=== PATIENT | female | born 1950 | race Caucasian/White ===

== ENCOUNTER 2017-06-13 12:52 | Inpatient (IN) | payer OTHER ==
[~2017-06-13] VITALS: Ht 160 cm; Wt 75.7 kg
--- NOTE | ~2017-06-13 | HC ---
[facility] [place] [address] CONSULTATION Name: BRISAMARTINEZ Room #: 455-P ADM IN M.R.#: [id number] Admission: 06/13/17 Attend Phys: Jeremy Cordova Discharge: Date of : 48 Report #: [id number] THIS REPORT FOR: //name// CC: Jamila Cordova DATE OF SERVICE: 06/13/2017 HISTORY OF PRESENT ILLNESS: The patient is a 66-year-old single white female who I was asked to see in the hospital today after she complained of chest pain. The patient apparently presented in 2002 with chest burning. She was found to have coronary artery disease and had a stent placed in the LAD at [facility]. She has apparently done well since that time. Her last stress test was a couple of years ago. She has been followed by Dr. Michael, my partner. She last saw Dr. Michael in September of this year when she was doing well. She states that recently, she has been in [facility]. While over there, when she exerted herself, she felt a burning in her chest that would go into her arm. It was relieved with rest. Since [place] to the [place] 5 [place] ago, she continues to have intermittent burning in her chest that is related to activity. It occurs almost every day. She went to see Dr. Fowler today. She was noted to have an abnormal EKG. She was stent from the office to the emergency room here at [facility] by ambulance. The chest pressure is improved at this time. She denied her chest pressure was related to food. She has had no cough or blood in her stool. She does get short of breath if she exerts herself, but had no palpitations or syncope. PAST MEDICAL HISTORY: Otherwise significant for hysterectomy and 2 back surgeries. She has a history of hypertension, hyperlipidemia, and discoid lupus. She has had a colon polyp removed in the past. MEDICATIONS: Consist of Lipitor, Climara, aspirin, Nexium, metoprolol, and spironolactone. ALLERGIES: She has intolerances to SULFA and CODEINE. FAMILY HISTORY: Significant for heart disease. SOCIAL HISTORY: She has been . She lives in [place]. She used to work for the [employer]. Nonsmoker. Rarely drinks alcohol. REVIEW OF SYSTEMS: She has had no history of stroke, asthma, peptic ulcer disease, liver disease, kidney disease, cancer, psychiatric illness, or chronic skin condition. PHYSICAL EXAMINATION: [facility] [address] [place] [address] CONSULTATION Name: MARTINEZ LEDEZMA Room #: 455-P [facility] IN ..#: [id number] Admission: 06/13/17 Attend Phys: Jeremy Cordova Discharge: Date of : 48 Report #: [id number] GENERAL: Revealed a middle-aged female who appeared in no acute distress. VITAL SIGNS: She had a blood pressure of 120/60, pulse of 60, and she was afebrile. HEENT: She is anicteric. Conjunctivae are pink. Mucous membranes are moist. NECK: Veins nondistended. No carotid bruits. Neck supple. CHEST: Clear to auscultation. CARDIAC: Regular rate and rhythm. ABDOMEN: Soft and nontender. EXTREMITIES: No edema. Dorsalis pedis pulse is 1+ bilaterally. SKIN: Cool and dry. NEUROLOGIC: Nonfocal. LABORATORY DATA: Her ECG shows a sinus rhythm, left axis, and right bundle-branch block. Workup in the emergency room today: She had a chest x-ray that showed normal heart size and clear lung rowe. Her lab work, sodium 130, creatinine 1.4, and glucose 94. Troponin 0.04. White blood cell count 8.0 and hemoglobin 13.5. IMPRESSION AND RECOMMENDATIONS: 1. Unstable angina. Recommend repeat cardiac catheterization. 2. Hypertension. The patient has been on a beta-laurita. 3. Hyperlipidemia. The patient is on a statin drug. 4. Discoid lupus. <ELECTRONICALLY SIGNED> By: Tom Christine MD, [facility] 06/14/17 0811 [id number] Tom Christine MD, FAC /nt
--- NOTE | ~2017-06-13 | 2DMMODE ---
[facility] [address] [place] [address] 2 D/M-MODE ECHOCARDIOGRAM Name: MARTINEZ LEDEZMA Room #: 455-P ADM IN .R.#: [id number] Admission: 06/13/17 Attend Phys: Jeremy Bob Discharge: Date of : 48 Date of Service: 06/14/17 1705 Report #: [id number] THIS REPORT FOR: //name// APPROVED REPORT Study performed: 06/14/2017 15:06:55 EXAM: Comprehensive 2D, Doppler, and color-flow Echocardiogram Patient Location: Echo lab Room #: [facility] Status: routine BSA: 1.79 HR: 78 bpm BP: 107/48 mmHg Rhythm: NSR/Irregular Other Information Study Quality: Good Indications CAD Hx: CAD, stents. 2D Dimensions RVDd: 33.53 mm LVEF(%): 68.87 (>50%) IVSd: 11.43 (7-11mm) LVOT Diam: 20.62 (18-24mm) LVDd: 42.62 mm PWd: 10.38 (7-11mm) Ascending Ao: 32.39 (22-36mm) LVDs: 26.31 (25-40mm) Aortic Root: 30.12 mm Mccain's LVEF: 68.87 % Volumes Left Atrial Volume (Systole) Single Plane 4CH: 46.59 mL Single Plane 2CH: 51.53 mL LA ESV Index: 29.00 mL/m2 Aortic Valve AoV Peak Sinna.: 1.86 m/s AO Peak Gr.: 13.81 mmHg LVOT Max P.87 mmHg LVOT Max V: 1.10 m/s MELANIE Vmax: 1.98 cm2 AI Vmax: 4.07 m/s AI Hart: 2.61 m/s2 AI PHT: 451.47 ms [facility] [place] [address] 2 D/M-MODE ECHOCARDIOGRAM Name: MARTINEZ LEDEZMA Room #: 455-P [facility] IN ..#: [id number] Admission: 06/13/17 Attend Phys: Jeremy Bob Discharge: Date of : 48 Date of Service: 06/14/17 1705 Report #: [id number] Mitral Valve E/A Ratio: 0.9 MV Decel. Time: 184.88 ms MV E Max Sinan.: 0.64 m/s MV A Sinan.: 0.73 m/s MV PHT: 53.61 ms IVRT: 83.04 ms Pulmonary Valve PV Peak Sinan.: 1.06 m/s PV Peak Gr.: 4.49 mmHg Pulmonary Vein P Vein S: 0.69 m/s P Vein A: 0.30 m/s P Vein D: 0.57 m/s P Vein A Dur.: 101.5 msec P Vein S/D Ratio: 1.21 Tricuspid Valve TR Peak Sinan.: 2.73 m/s RAP Estimate: 5.00 mmHg TR Peak Gr.: 29.88 mmHg PA Pressure: 35.00 mmHg Left Ventricle The left ventricle is normal size. There is normal LV segmental wall motion. There is normal left ventricular wall thickness. Left ventricular systolic function is normal. LVEF is 55-60%. Mild diastolic dysfunction is present (impaired relaxation pattern). Right Ventricle The right ventricle is normal size. The right ventricular systolic function is normal. Atria Left atrium is mildly dilated. The right atrium size is normal. Aortic Valve Aortic valve is mildly calcified. Mild aortic regurgitation. There is no aortic valvular stenosis. Mitral Valve The mitral valve is normal in structure. Trace mitral regurgitation. No evidence of mitral valve stenosis. Tricuspid Valve [facility] [address] [place] [address] 2 D/M-MODE ECHOCARDIOGRAM Name: BRISAMARTINEZ Room #: 455-P [facility] IN [facility]#: [id number] Admission: 06/13/17 Attend Phys: Jeremy Bob Discharge: Date of : 48 Date of Service: 06/14/17 1705 Report #: [id number] The tricuspid valve is normal in structure. Mild tricuspid regurgitation. Estimated PAP is 35mmHg. Pulmonic Valve The pulmonary valve is normal in structure. Trace pulmonic regurgitation. Great Vessels The aortic root is normal in size. The ascending aorta is normal in size. IVC is normal in size and collapses >50% with inspiration. Pericardium There is no pericardial effusion. <Conclusion> LVEF is 55-60%. Left atrium is mildly dilated. Mild aortic regurgitation. <ELECTRONICALLY SIGNED> By: Tom Christine MD, FACC 06/14/171704 04 04 Tom Christine MD, FACC /INF
--- NOTE | ~2017-06-13 | EKG ---
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
--- NOTE | ~2017-06-13 | CATHLAB ---
[facility] [address] [place] [address] INVASIVE PROCEDURE REPORT Name: BRISADENZELQING Lopez Room #: 455-P [facility] IN ..#: [id number] Admission: 06/13/17 Attend Phys: Jeremy Bob Discharge: Date of : 48 Date of Service: 06/14/172001 Report #: [id number] THIS REPORT FOR: //name// APPROVED REPORT Patient Details Patient Status: In-Patient Room #: The patient is a 66 year-old female Event Personnel Tom Christine Sports Recruiter, Kaylynn Srivastava Penny, Wes RN, Noa Myles CVT Monitor Procedures Performed Art Access - R radial artery Left Heart Cath w/or w/o Coronaries [id number] [facility] Hemostasis with Hemoband 06963 Initial Mod Sed Same Phys/QHP Gr5y [id number] Indication Chest pain Risk Factors Coronary Artery Disease Previous Procedures/Diagnoses Previous PCI Admission/Lab Medications/Medications given during procedure Aspirin, Heparin Unfract. Procedure Narrative The patient was brought electively to the Cardiac Catheterization Laboratory and was prepped and draped in a sterile manner. The Right Wrist^ was infiltrated with 1% Lidocaine subcutaneous anesthesia. A TRANSRADIAL SLENDER 6F GLIDESHEATH KIT #[id number] sheath was inserted into the Right Radial Artery^. Coronary angiography was performed using coronary diagnostic catheters. The right coronary system was accessed and visualized with a JR 4 catheter. The left coronary system was accessed and visualized with a JL 3.5 catheter. Left ventricular/Aortic Valve gradient assessed via catheter pullback. The patient tolerated the procedure well and there were no complications associated with the procedure. There was no hematoma. Intraoperative Conscious Sedation Sedation start time: 12:09 Case end Time: [facility] [address] [place] [address] INVASIVE PROCEDURE REPORT Name: MARTINEZ LEDEZMA John Room #: 455-P [facility] IN [facility]#: [id number] Admission: 06/13/17 Attend Phys: Jeremy Bob Discharge: Date of : 48 Date of Service: 06/14/172001 Report #: [id number] 12:36 Versed 2.0 mg Fluoro Time: 4.30 minutes Dose: DAP 3951.00 cGycm2 373 mGy Contrast Type and Amount: Visipaque 75 ml Coronary Angiography The patient's coronary anatomy is right dominant. [place] Artery Percent Stenosis Left Main: 0 % Prox LAD: 50 % Mid/Distal LAD: 0 % Circumflex: 0 % RCA: 0 % Ramus: %LAD had a stent just after the 1st diagonal artery. Just proximal to the stent, there was an eccentric 50% stenosis. The first diagonal branch had a mid 60% stenosis. Left Ventriculography Left Ventriculography was not performed. Hemodynamics The aortic pressure is 108/56 mmHg with a mean of 78 mmHg. The left ventricular pressure is 132/-6 mmHg with a mean of mmHg. The left ventricular end diastolic pressure is 12 mmHg. Conclusion 1. no significant restenosis of a lad stent 2. moderate disease of the lad and diagonal Recommendations Aggressive Medical Therapy <ELECTRONICALLY SIGNED> By: Tom Christine MD, FACC 06/14/172001 01 01 Tom Christine MD, FACC /INF
[2017-06-13 12:52] VITALS: BP 126/50
[~2017-06-13 12:52] MED LIST: ASCRIPTIN 325325 MG PO; CLIMARA PRO PA1 EACH TOP; FLONASE 0.05%50 MCG SPRAY; HYDROXYCHLOROQ200 M1 PO; LISINOPRIL2.5 MG PO; MAG-OX 400 TAB400 M1 PO; NAPROSYN500 MG PO; NEXIUM40 MG PO; SIMCOR 500-201 EACH PO; TOPROL XL25 MG PO; TRIAMTERENE-HC1 EAC3 PO; ZOFRAN ODT4 MG PO
[2017-06-13 13:36] LABS: ABSOLUTE NEUTROPHILS 4.7 thou/uL (1.4-8.2); BASOPHILS 1.3 % (0.0-2.0); EOSINOPHILS 0.9 % (0.0-3.0); HEMOGLOBIN 13.5 gm/dL (12.0-15.0); LYMPHOCYTES 29.1 % (24.0-44.0); MCH 30.1 pg (26.0-34.0); MCHC 33.8 g/dL (28.0-37.0); MCV 88.9 fL (80.0-100.0); MONOCYTES 9.6 % (1.0-8.0); PLATELET COUNT 200 thou/uL (150-400); POLYS 59.1 % (36.0-66.0); RDW 14.4 % (10.5-14.5)
[2017-06-13 13:38] LABS: MANUAL DIFF NO
[2017-06-13 13:44] LABS: ANION GAP 8 mmol/L (7-16); BUN 37 mg/dL (7-18); CALCIUM 9.5 mg/dL (8.5-10.1); CHLORIDE 102 mmol/L (98-107); CO2 20 mmol/L (21-32); CREATININE 1.4 mg/dL (0.6-1.0); GLUCOSE 94 mg/dL (74-106); POTASSIUM 5.1 mmol/L (3.5-5.1); SODIUM 130 mmol/L (136-145)
[2017-06-13 13:52] LABS: TROPONIN-I < 0.04 ng/mL (<0.04-0.07)
[2017-06-13] MEDS ORDERED: ASPIRIN325 PO (13:53)
[2017-06-13] MEDS ORDERED: ATORVASTATIN CA40 MG PO (13:54)
[2017-06-13] MEDS ORDERED: ESTRADIOL 1 MG T1 M1 PO (13:54)
[2017-06-13 18:47] VITALS: BP 109/44
[2017-06-13 20:30] VITALS: BP 124/53
[2017-06-14] VITALS (7 sets, daily range): BP systolic 107–124; BP diastolic 27–60
[2017-06-14 05:12] LABS: PHOSPHORUS 3.3 mg/dL (2.5-4.9); TROPONIN-I < 0.04 ng/mL (<0.04-0.07)
[2017-06-14 05:14] LABS: ALBUMIN 3.1 g/dL (3.4-5.0); ALKALINE PHOSPHATASE 65 U/L (46-116); ANION GAP 9 mmol/L (7-16); BUN 28 mg/dL (7-18); CALCIUM 8.5 mg/dL (8.5-10.1); CHLORIDE 104 mmol/L (98-107); CHOLESTEROL 100 mg/dL (<200); CO2 18 mmol/L (21-32); CREATININE 1.3 mg/dL (0.6-1.0); GLUCOSE 78 mg/dL (74-106); HDL CHOLESTEROL 43 mg/dL (>40); LDL CHOLESTEROL 41 mg/dL (<100); POTASSIUM 5.4 mmol/L (3.5-5.1); SGOT 17 U/L (15-37); SGPT 12 U/L (30-65); SODIUM 131 mmol/L (136-145); TC:HDL 2.3 Ratio (Not establshd); TOTAL BILIRUBIN 0.4 mg/dL (<0.1-1.0); TOTAL PROTEIN 6.6 g/dL (6.4-8.2); TRIGLYCERIDE 83 mg/dL (<150); VLDL 17 mg/dL (<40)
[2017-06-14 05:23] LABS: SERUM ASSESSMENT Clear
[2017-06-15 00:36] VITALS: BP 98/48
[2017-06-15 05:09] VITALS: BP 121/38
[2017-06-15 07:55] VITALS: BP 141/65
[2017-06-15] MEDS ORDERED: CARAFATE 1 GM TA1 G1 PO (09:12)
[2017-06-15 09:28] VITALS: BP 141/65
== END 2017-06-15 10:30 | disposition home or self-care (01) | DRG 287 ==
LOC: ER 12:52 → EROBS 14:30 → 4W 14:30 → ENTRNSPT 06-15 10:30 → EDTRNSPTSTS 06-15 10:32
PROVIDERS: Emergency Medicine; Hospitalist; Internal Medicine Cardiovascular Disease
PROC: 4A023N8 Measurement of Cardiac Sampling and Pressure, Bilateral, Percutaneous Approach (ICD-10-PCS; principal; 2017-06-14)
PROC: B2111ZZ Fluoroscopy of Multiple Coronary Arteries using Low Osmolar Contrast (ICD-10-PCS; principal; 2017-06-14)
PROC: 4A023N7 Measurement of Cardiac Sampling and Pressure, Left Heart, Percutaneous Approach (ICD-10-PCS; principal; 2017-06-14)
DX: R07.89 Other chest pain (principal); I24.9 Acute ischemic heart disease, unspecified; I25.10 Atherosclerotic heart disease of native coronary artery without angina pectoris; I10 Essential (primary) hypertension; E78.5 Hyperlipidemia, unspecified; L93.0 Discoid lupus erythematosus; K21.9 Gastro-esophageal reflux disease without esophagitis; Z95.5 Presence of coronary angioplasty implant and graft; Z88.6 Allergy status to analgesic agent; Z88.2 Allergy status to sulfonamides; Z90.710 Acquired absence of both cervix and uterus; Z82.49 Family history of ischemic heart disease and other diseases of the circulatory system; Z79.899 Other long term (current) drug therapy; Z79.82 Long term (current) use of aspirin
CPT/HCPCS: 10045

== ENCOUNTER 2019-04-28 12:32 | Inpatient (IN) | payer OTHER ==
[~2019-04-28] VITALS: Ht 160 cm; Wt 72.6 kg
--- NOTE | ~2019-04-28 | HC ---
[facility] [place] [address] CONSULTATION Name: MARTINEZ LEDEZMA Room #: 430-P [facility] IN M.R.#: [id number] Admission: 04/28/19 Attend Phys: Dajuan Bobo MD Discharge: Date of : 48 Report #: [id number] THIS REPORT FOR: //name// CC: Dajuan Fowler DATE OF SERVICE: 05/01/2019 NEPHROLOGY CONSULTATION REASON FOR CONSULTATION: Hyponatremia. HISTORY OF PRESENT ILLNESS: This is a 68-year-old female who was admitted 3 days ago. She presented at that time with a 3-4 day history of nausea, vomiting, and persistent diarrhea. She was having trouble getting any food or fluid down. She felt very weak. She presented with a blood pressure as low as 106/36. She was not febrile at that time. Surprisingly, she was not tachycardic. She did have an elevated creatinine level on admission of 1.4. She was given IV normal saline and within another day, her creatinine is down to 1.0 and it has been in the 0.8-0.9 range since that time. Also, on presentation, she had a serum sodium of 118. It was up to 126 by the next day, 127 yesterday and 128 today. Because of its persistent low reading, we are asked to see the patient. In talking to the patient and in reviewing her labs, she has had prior evidence of hyponatremia. I have labs from 2009 and 2017 showing serum sodium of 130-133 and she remembers being mentioned about this in the past. It never sounds that it has been as extreme as it was during this hospitalization. On admission, her urine specific gravity was 1.010. Yesterday at a time that her serum sodium was 127, she had a urine osmolality of 385. Her primary care physician is Dr. Jamila Fowler. She states that Dr. Fowler routinely follows her labs. She is certain that her thyroid has been checked, but has been normal. She has not had any edema. She has been chronically on a bit of spironolactone ordered by the coal weigher, but she has not taken that in nearly 5 or 6 days since she has been ill. No other diuretic use. No nonsteroidal use. PAST MEDICAL HISTORY: Discoid lupus which has been inactive of late. She also has coronary artery disease. She had a prior coronary stent placed she thinks about 2004. She has had some mild hypertension, treated with metoprolol and spironolactone. MEDICATIONS: Prior to admission included Carafate 1 gram q.i.d., Nexium 40 mg daily, fluticasone, metoprolol 25 mg daily, atorvastatin 40 mg daily, spironolactone 100 mg b.i.d. (she cannot tell me why she takes this dose), aspirin 81 mg [address] [address] CONSULTATION Name: MARTINEZ LEDEZMA Room #: 430-P [facility] IN M.R.#: [id number] Admission: 04/28/19 Attend Phys: Dajuan Bobo MD Discharge: Date of : 48 Report #: [id number] ALLERGIES: LISTED TO SULFA AND CODEINE. FAMILY HISTORY: Noncontributory. SOCIAL HISTORY: The patient is single, lives in [place], [place]. She retired from working for the [employer]. She enjoys extensive travel. REVIEW OF SYSTEMS: She reports no recent exposures to unusual food or potentially contaminated food. No unusual water sources. She has not had recent travel out of the country. She has also had sinus drainage and what she calls a sinus infection as well as a raspy voice and some cough; again, this has all been going on for the past 10 days. She then had the onset of the nausea, vomiting, diarrhea. Nausea and vomiting have resolved. She is still having diarrhea 4 stools this morning, somewhat explosive in nature. She reports no dysuria, urgency, frequency or other urinary symptoms. No problems with edema. No current fevers, chills or sweats. PHYSICAL EXAMINATION: GENERAL: Very pleasant 68-year-old female, awake, alert and responsive. She still has extensive cough during my exam as well as a very raspy voice. VITAL SIGNS: Blood pressure 111/46, heart rate 70, temperature 98.1, oxygen saturation 99%. HEENT: Shows pupils are equal and reactive. Sclerae nonicteric. Oral mucosa is negative. NECK: Supple without adenopathy, thyromegaly, JVD or bruit. CHEST: Clear bilaterally. CARDIOVASCULAR: Heart has a regular rate and rhythm. No murmur, gallop or rub. ABDOMEN: Has active bowel sounds, is soft, nontender. No organomegaly or masses. EXTREMITIES: Show no peripheral edema. She has 2+ peripheral pulses. LABORATORY DATA: From today, sodium 128, potassium 4.2, chloride 97, bicarbonate 19, BUN 11, creatinine 0.9, glucose 98, calcium 8.4. CBC on admission, white count 11.6, hemoglobin 12, hematocrit 35.4 and a day later, white count 7.8, hemoglobin 10.3, hematocrit 30.2. ASSESSMENT: 1. Hyponatremia. I think she had two components. She had an acute component related to her gastrointestinal illness. She received appropriate IV normal saline and the hyponatremia corrected by about 10 points that is where she is sitting now. She also has a chronic component as evidenced by her labs over the years. She did have a urine osmolality yesterday, which was very high, indicating significant ADH release. We need to recheck a thyroid level. The other contributing factor might be the longstanding spironolactone. I am uncertain why she is on such a high dose of spironolactone and that may be contributing somewhat. She has been off of it for a number of days though. We [facility] [address] [place] [address] CONSULTATION Name: MARTINEZ LEDEZMA Room #: 430- ADM IN M.R.#: [id number] Admission: 04/28/19 Attend Phys: Dajuan Bobo MD Discharge: Date of : 48 Report #: [id number] will recheck another urine osmolality tomorrow to see if she still has as much ADH effect. We will check a thyroid level. At this point, I am not going to make a change in her fluid intake until we get some of those labs back. Since she has so chronically run in the 130-132 range, I do not expect we will get her much above that level. 2. Gastrointestinal illness, now about 6 days since onset. Still not resolved from a diarrhea standpoint. 3. Recent upper respiratory infection. 4. Coronary artery disease, prior stent many years ago, currently asymptomatic. 5. Discoid lupus, inactive. PLAN: 1. Recheck urine osmolality in the morning. 2. Recheck serum labs. 3. We will continue to hold the spironolactone at this point. 4. Further decisions on long-term treatment pending this evaluation. By: 2113 0040 Anthony Ramirez MD /nt
[~2019-04-28 12:32] MED LIST changes: +ASPIRIN325 PO; +ATORVASTATIN CA40 MG PO; +CARAFATE 1 GM TA1 G1 PO; +ESTRADIOL 1 MG T1 M1 PO
[2019-04-28 12:46] VITALS: BP 132/55
[2019-04-28 13:56] LABS: HEMATOCRIT 35.4 % (37.0-47.0); MCH 28.6 pg (26.0-34.0); MCV 84.2 fL (80.0-100.0); PLATELET COUNT 246 thou/uL (150-400); RDW 13.6 % (10.5-14.5); WBC 11.6 thou/uL (4.0-11.0)
[2019-04-28 14:11] LABS: ALBUMIN 3.1 g/dL (3.4-5.0); CALCIUM 9.9 mg/dL (8.5-10.1); CREATININE 1.4 mg/dL (0.6-1.0); POTASSIUM 4.6 mmol/L (3.5-5.1); TOTAL BILIRUBIN 0.6 mg/dL (<0.1-1.0)
[2019-04-28 14:36] LABS: ABSOLUTE NEUTROPHILS 9.5 thou/uL (1.4-8.2); POLYCHROMASIA OCCASIONAL
[2019-04-28 14:37] LABS: ANISOCYTOSIS 2+; OVALOCYTES OCCASIONAL
[2019-04-28] MEDS ORDERED: ALDACTONE100 MG PO (14:44)
[2019-04-28] MEDS ORDERED: ASPIR 8181 MG PO (14:44)
[2019-04-28] MEDS ORDERED: CARAFATE 1 GM TA1 G1 PO (14:46)
[2019-04-28 14:47] VITALS: BP 106/36
[2019-04-28 15:06] VITALS: BP 114/51
[2019-04-28 16:29] VITALS: BP 105/53
[2019-04-28 17:56] LABS: URINE BILIRUBIN NEGATIVE (Negative); URINE BLOOD TRACE (Negative); URINE CLARITY CLEAR; URINE COLOR YELLOW; URINE GLUCOSE-RANDOM* NEGATIVE (Negative); URINE KETONES NEGATIVE (Negative); URINE LEUKOCYTES-REFLEX NEGATIVE (Negative); URINE NITRITE-REFLEX NEGATIVE (Negative); URINE PROTEIN (DIPSTICK) TRACE (Negative); URINE UROBILINOGEN 0.2 E.U./dl (0.2-1.0)
[2019-04-28 20:08] VITALS: BP 114/51
[2019-04-29 05:00] VITALS: BP 123/59
[2019-04-29 06:42] LABS: HEMATOCRIT 30.2 % (37.0-47.0); HEMOGLOBIN 10.3 gm/dL (12.0-15.0); MCH 28.6 pg (26.0-34.0); MCHC 34.1 g/dL (28.0-37.0); RBC 3.6 mil/uL (4.20-5.00); RDW 13.8 % (10.5-14.5); WBC 7.8 thou/uL (4.0-11.0)
[2019-04-29 06:53] LABS: CALCIUM 8.7 mg/dL (8.5-10.1); POTASSIUM 4.3 mmol/L (3.5-5.1)
--- NOTE | 2019-04-29 07:53 | NUR ---
PT AMBULATING TO BATHROOM WITH STANDBY ASSIST AND IS TOLERATING WELL. DENIES PAIN. CONCERNED WITH COUGH. RESTING COMFORTABLY. NO NEEDS VOICED. CALL LIGHT WITHIN REACH. WILL CONTINUE TO PROVIDE FREQUENT OBSERVATION.
[2019-04-29 08:17] VITALS: BP 109/52
--- NOTE | 2019-04-29 10:50 | NUR ---
INITIAL ASSESSMENT: Pt evaluated for d/c planning needs. Reviewed chart and spoke with nurse, pt and pt's sister. Pt is alert and oriented. Pt lives alone in apartment and was independent with ADL's prior to admission. Pt remains active in the community and is still driving. Pt has been going to outpatient PT for back pain. Pt uses cane for ambulation. Pt plans on returning home on d/c from hospital. Will remain available to assist as needed.
[2019-04-29 16:26] VITALS: BP 102/35
[2019-04-29 19:43] VITALS: BP 113/50
--- NOTE | 2019-04-29 19:56 | NUR ---
ASSUMED CARE OF PT AT 0700. ASSESSMENT CHARTED. A&O,X4. DENIES PAIN. NO N/V/D. UP WITH ASSIST TO THE BATHROOM, GOOD OUTPUT NOTED. R AC IV INFILTRATED, NEW LEFT AC IV IN PLACE WITH IVF. MONITORING SODIUM, INCREASING FROM LOW AT ADMIT. PT IN STABLE CONDITION.
[2019-04-30 04:32] VITALS: BP 106/30
--- NOTE | 2019-04-30 04:59 | NUR ---
PATIENT ALERT AND ORIENTED X4. UP WITH SBA. IV PATENT. C/O NAUSEA, MED GIVEN. HAS DIARRHEA THIS AM. SLEPT OFF AND ON DURING NIGHT. NO C/O PAIN.
[2019-04-30 05:46] LABS: CALCIUM 8.5 mg/dL (8.5-10.1); CREATININE 0.8 mg/dL (0.6-1.0); POTASSIUM 4.4 mmol/L (3.5-5.1)
[2019-04-30 08:24] VITALS: BP 129/48
--- NOTE | 2019-04-30 13:57 | NUR ---
ORDERS RECEIVED FOR EVAL AND TREAT. SPOKE TO Pt WHO DENIES ANY PROBLEMS WITH STRENGTH OR MOBILITY. STATES SHE IS GETTING UP ON HER OWN. Pt IS DECLINING FORMAL P.T. EVAL.
--- NOTE | 2019-04-30 17:15 | NUR ---
PT A&OX4, AMBULATES SELF IN ROOM. PT HAS LOOSE COUGH, NON PRODUCTIVE. DENIES ANY N/V TODAY THOUGH FEELS WEAK. TOLERATING REG DIET. URINE SAMPLE COLLECTED. WILL CONT POC.
[2019-04-30 17:21] VITALS: BP 108/41
[2019-04-30 19:30] VITALS: BP 100/39
--- NOTE | 2019-05-01 04:30 | NUR ---
ASSUMED CARE OF PT @1900. PT ASSESSED AT START OF SHIFT PT A&OX4. DENIES PAIN. COMPLAINS OF NAUSEA AND MEDS GIVEN SEE EMAR. COUGHING NOTED. PT UP AD KIMBERLY TO THE BATHROOM WILL CONTINUE TO MONITOR TILL EOS
[2019-05-01 04:39] VITALS: BP 101/41
[2019-05-01 07:25] VITALS: BP 112/47
[2019-05-01 09:31] LABS: CALCIUM 8.4 mg/dL (8.5-10.1); CREATININE 0.9 mg/dL (0.6-1.0); POTASSIUM 4.2 mmol/L (3.5-5.1)
--- NOTE | 2019-05-01 09:34 | NUR ---
PATIENT RFUSED OT EVALUATION SECONDARY TO PATIENT REPORT OF INDEPENDENCE WITH ALL SELF CARE. EVALUATION DEFFERED
[2019-05-01 15:56] VITALS: BP 114/49
--- NOTE | 2019-05-01 18:10 | NUR ---
PT A&OX4, IV INTACT IN R HAND, UP AD KIMBERLY IN ROOM. PT STILL HAS NON PRODUCTIVE COUGH, ORDER REQUESTED. OTHERWISE DENIES ANY PAIN. SISTER VISITED PT MOST OF THE DAY. PT ASLO HAVING DIARRHEA. WILL CONT POC.
[2019-05-01 19:30] VITALS: BP 111/46
--- NOTE | 2019-05-02 03:44 | NUR ---
ASSUMED CARE OF PT @1900 PT A&OX4 @THIS SHIFT WITH C/O COUGHING AND WATERY EYES. BUSINESS PROFESSOR STATEMENT CLERK CONSULTED AND COUGH SYRUP AND BENADRYL ORDERED FOR MANAGEMENT. MEDS GIVEN AND PT VANESSA IT WELL. POC DONE AND UA SAMPLE SENT TO LAB. WILL CONTINUE TO MONITOR TILL EOS
[2019-05-02 03:55] VITALS: BP 132/59
[2019-05-02 04:56] LABS: HEMATOCRIT 30.2 % (37.0-47.0); HEMOGLOBIN 10.3 gm/dL (12.0-15.0); MCH 28.5 pg (26.0-34.0); MCHC 34.2 g/dL (28.0-37.0); MCV 83.3 fL (80.0-100.0); RBC 3.63 mil/uL (4.20-5.00); RDW 14.2 % (10.5-14.5); WBC 8.6 thou/uL (4.0-11.0)
[2019-05-02 05:08] LABS: CALCIUM 8.3 mg/dL (8.5-10.1); CREATININE 0.9 mg/dL (0.6-1.0); POTASSIUM 3.9 mmol/L (3.5-5.1)
[2019-05-02 08:10] VITALS: BP 113/46
[2019-05-02 09:27] VITALS: BP 113/46
[2019-05-02 11:12] VITALS: BP 113/46
--- NOTE | 2019-05-02 11:13 | NUR ---
DISCHARGE PAPERS GONE OVER WITH PATIENT SIGNED AND COPY IN CHART. ALL BELONGINGS PACKED AND SENT WITH PATIENT. NO PAIN OR RESP DISTRESS AT DISCHARGE. ALL BELONGINGS PACKED AND SENT WITH PATIENT.
== END 2019-05-02 11:28 | disposition home or self-care (01) | DRG 391 ==
LOC: ER 12:32 → EROBS 14:33 → 4E 14:33 → ENTRNSPT 05-02 11:04 → EDTRNSPTSTS 05-02 11:07 → 4E 05-02 11:28
PROVIDERS: Emergency Medicine; ADMIT Hospitalist
DX: K52.9 Noninfective gastroenteritis and colitis, unspecified (principal); N17.0 Acute kidney failure with tubular necrosis; E87.1 Hypo-osmolality and hyponatremia; E87.2 Acidosis; E86.0 Dehydration; I25.10 Atherosclerotic heart disease of native coronary artery without angina pectoris; I10 Essential (primary) hypertension; L93.0 Discoid lupus erythematosus; E86.9 Volume depletion, unspecified; Z79.82 Long term (current) use of aspirin; Z79.899 Other long term (current) drug therapy; Z95.5 Presence of coronary angioplasty implant and graft; Z88.6 Allergy status to analgesic agent; Z88.2 Allergy status to sulfonamides
CPT/HCPCS: 10084

== ENCOUNTER → 2021-02-08 | Outpatient (CLI) | payer OTHER ==
[~2021-02-08] MED LIST changes: +ALDACTONE100 MG PO; +ALEVE220 M1 PO; +ASA81BEC PO; +ASPIR 8181 MG PO; -ATORVASTATIN CA40 MG PO; +CALCIUM + VITA1 EACH PO; +FUROSEMIDE 20 M20 MG PO; +LIPITOR40 MG PO
[2021-02-08 13:28] LABS: URINE BILIRUBIN NEGATIVE (Negative); URINE BLOOD NEGATIVE (Negative); URINE CLARITY CLEAR; URINE COLOR YELLOW; URINE GLUCOSE-RANDOM* NEGATIVE (Negative); URINE KETONES NEGATIVE (Negative); URINE LEUKOCYTES-REFLEX NEGATIVE (Negative); URINE NITRITE-REFLEX NEGATIVE (Negative); URINE PROTEIN (DIPSTICK) NEGATIVE (Negative); URINE UROBILINOGEN 0.2 E.U./dl (0.2-1.0)
[2021-02-08 13:29] LABS: HEMATOCRIT 33.7 % (37.0-47.0); HEMOGLOBIN 11.1 gm/dL (12.0-15.0); MCH 27.7 pg (26.0-34.0); MCV 83.8 fL (80.0-100.0); RBC 4.02 mil/uL (4.20-5.00); RDW 14.8 % (10.5-14.5); WBC 5.1 thou/uL (4.0-11.0)
[2021-02-08 13:39] LABS: ALBUMIN 3.6 g/dL (3.4-5.0); CALCIUM 9.2 mg/dL (8.5-10.1); CREATININE 1.2 mg/dL (0.6-1.0); POTASSIUM 4.3 mmol/L (3.5-5.1)
[2021-02-08 13:43] LABS: INR 0.96; PROTIME 10.5 Seconds (10.5-12.1)
== END ==
LOC: PAC 09:37
PROVIDERS: Student in an Organized Health Care Education/Training Program; ATTEND Orthopaedic Surgery
DX: Z01.812 Encounter for preprocedural laboratory examination (principal); Z20.822 Contact with and (suspected) exposure to COVID-19

== ENCOUNTER 2021-02-15 07:24 | Inpatient (IN) | payer OTHER ==
[~2021-02-15] VITALS: Ht 157.5 cm; Wt 67.1 kg
[2021-02-15 08:51] VITALS: BP 144/49
[2021-02-15 14:30] VITALS: BP 146/58
[2021-02-15 15:00] VITALS: BP 86/36
--- NOTE | 2021-02-15 15:58 | NUR ---
PT ADMITTED RELATED TO RIGHT HIP REPLACEMENT. CM REVIEWED CHART AND SPOKE WITH CARE TEAM. CM MET WITH PT AND SISTER AT BEDSIDE THIS DAY. PT APPEARED TO BE A&O x4. CM ROLE INTRODUCED. PT INDICATED SHE RESIDES ALONE IN A 4PLEX WITH 5 STEPS DOWN TO APARTMENT. 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 PT INDICATED SHE HAS A FWW FOR HOME USE. PT INDICATED SHE HAD HER KNEE DONE IN 2011 AND HAD [facility] AND THEN OP THERAPY. HER PCP IS DR. BRAYDEN CASTAÑEDA. PT AND SISTER INDICATED THAT THEY ARE INTERESTED IN SHORT TERM POST ACUTE CARE STAY UPON DC. CM PROVIDED A [facility] PPO SNF LIST FOR THEM TO REVIEW. CM TO FOLLOW UP AND SEND REFERRALS. CM FOLLOWING REGARDING DC PLANNING.
--- NOTE | 2021-02-15 19:42 | NUR ---
Pt arrived to floor from recovery room per bed around 1400 in stable comdition accompanied by sister.Admission hx ,assessment and careplan completed.Vss. Therapist came and eveluated pt postop. Pt ambulated in hallways with therapist,good endurance noted.Pt tolerated clear liq. Pt up with walker and assist to bathroom.Piv was leaking around 1800.Iv team called but hasn't shown up in pt room.Report off to herbert suh.
[2021-02-15 20:53] VITALS: BP 120/39
[2021-02-16 00:50] VITALS: BP 106/34
--- NOTE | 2021-02-16 03:23 | NUR ---
RECEIVED CARE OF THIS PATIENT AT 1900. PATIENT ALERT AND ORIENTED X4. UP TO BATHROOM WITH ASSIST OF ONE/GB AND WALKER. WITHOUT IV FOR AWHILE. PATIENT HARD STICK, 2 NURSES FROM THE FLOOR TRIED W/O SUCCESS, SENIOR BACKUP ADMINISTRATOR TRIED W/O SUCCESS. ED NURSE CAME AND WAS SUCCESSFUL. DRESSING ON R HIP D/I. HAS MARIA EUGENIA DRESSING. KURT'S AND SCD'S ARE IN PLACE. SLEPT OFF AND ON DURING NIGHT.
[2021-02-16 04:15] VITALS: BP 100/34
[2021-02-16 05:15] LABS: HEMATOCRIT 21.8 % (37.0-47.0); HEMOGLOBIN 7.6 gm/dL (12.0-15.0); MCH 28.7 pg (26.0-34.0); MCHC 34.7 g/dL (28.0-37.0); MCV 82.5 fL (80.0-100.0); RBC 2.64 mil/uL (4.20-5.00); RDW 14.8 % (10.5-14.5); WBC 7.1 thou/uL (4.0-11.0)
[2021-02-16 08:00] VITALS: BP 120/41
--- NOTE | 2021-02-16 08:05 | O ---
[facility] [place] [address] OPERATIVE REPORT Name: MARTINEZ LEDEZMA Room #: 434-P [facility] IN M.R.#: [id number] Admission: 02/15/21 Attend Phys: Tom Rios MD Discharge: Date of : 48 Report #: [id number] THIS REPORT FOR: cc: Mary Jernigan MD, Genelle J. MD Clymer, David J. 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 PROCEDURE: Right total hip arthroplasty. SURGEON: Tom Rios MD. INDICATIONS: This frail, but still active 70-year-old female complains of progressive right hip pain with limited range of motion and moderate shortening. Clinical exam and x-rays confirm chronic superior posterior subluxation with atrophy of the acetabulum and deformity of the femoral head. We discussed treatment options and elected to go ahead with right total hip arthroplasty. DESCRIPTION OF PROCEDURE: The patient was taken to the operating room where she was placed under general anesthesia. Prophylactic intravenous antibiotics were administered. She was turned to the left lateral decubitus position. The right hip, thigh and leg were meticulously prepped and draped. A slightly curving posterolateral skin incision was made. This was carried through fascia exposing the posterior aspect of the hip. The capsule and short external rotators were taken down and preserved. The hip was dislocated posteriorly. Marked deformity of the head was noted. A femoral neck osteotomy was performed. The Morelos and Nephew hip system was utilized. The femoral canal was opened with reamers and broaches. A size 13 trial broach seemed to fit most appropriately. The broach was removed and attention directed to the acetabulum. There was rather marked deformity with a superior erosion and some loss of cortical rim at the most superior aspect. I planned for a revision-type cup using a multihole Redapt cup design from a Morelos and Nephew. I was able to medialize the acetabulum, reaming more inferiorly, preserving as much bone in the superior and posterior aspect as possible. Using this technique, I was able to advance to a 52 mm reamer and seemed to have much better position of the cup and still good bone both anteriorly and posteriorly and extending up most of the superior aspect. There was an area of rim insufficiency in the most superior aspect, but this was small and the trial cup seemed to sit quite nicely and seemed to be stable. The [facility] [address] [place] [address] OPERATIVE REPORT Name: MARTINEZ LEDEZMA Room #: 434-P [facility] IN M.R.#: [id number] Admission: 02/15/21 Attend Phys: Tom Rios MD Discharge: Date of : 48 Report #: [id number] and Nephew size 52 outside diameter Redapt modular shell was selected. This was impacted into position using bone graft from the femoral head, impacted behind the component and superiorly. The component seated quite nicely and actually seemed to be quite secure. I elected to place 5 screws, testing all the holes to find the most appropriate areas for solid fixation. Adequate purchase on all the screws was established and the cup seems to be stable and in appropriate alignment. A 36 mm polyethylene liner was then inserted using the 20 mm elevated rim at about the 10 o'clock posterior position. The liner was snapped into place and seated nicely and appeared to be secure. Attention was directed back to the femur and again a size 13 femoral stem seemed to fit most appropriately. A trial reduction was performed and a +0 neck length fit nicely, resulting in improvement in her leg length and satisfactory stability. The permanent Morelos and Nephew Synergy size 13 femoral component was then inserted placing this in about 20 degrees of anteversion. It seated nicely and appeared to be secure. A +0 neck length x 36 mm diameter head size was selected. This was impacted on the Aranda taper. The hip was reduced. Once again alignment, range of motion, stability and leg length appeared to be satisfactory. I believe she is still a bit short on the right side, but has clearly been improved relative to the preoperative situation. Overall, I think a soft tissue balancing and alignment and leg length are quite satisfactory. At this point, the wound was copiously irrigated. Good hemostasis was established. The capsule and short external rotators were repaired using #2 FiberWire sutures passed through drill holes in the greater trochanter. A single Hemovac was left in the wound exiting through a separate stab incision. The fascia was closed with multiple #1 Vicryl sutures. The deeper tissues and subcutaneous tissues were closed with 0 Monocryl. The skin was closed with skin ingrid. A sterile dressing was applied. The patient was awakened and returned to the recovery room in good condition. MD DAHIANA Lim/FELICITAS <ELECTRONICALLY SIGNED> By: Tom Rios MD 02/16/21 0805 1148 1221 Tom Rios MD /rich
[2021-02-16 08:17] LABS: CALCIUM 8.6 mg/dL (8.5-10.1); CREATININE 1.1 mg/dL (0.6-1.0); MAGNESIUM 1.1 mg/dL (1.8-2.4); POTASSIUM 4.4 mmol/L (3.5-5.1)
--- NOTE | 2021-02-16 09:02 | NUR ---
ON-ASSESSMENT: CM REVIEWED CHART AND SPOKE WITH PATIENT regarding post acute care and SNF OPTIONS. PT REPORTS SHE HAS REVIEWED THE LIST AND REQUESTING A REFERRAL BE SENT TO [facility]. CM CONTACTED BENITEZ IN ADMISSIONS AT [facility] AND LEFT VM. CM ALSO FAXED REFERRAL AND AWAITING INPUT AT THIS TIME. PER ATTENDINGS NOTE PATIENT MAY BE MEDICALLY STABLE TO DISCHARGE 02/18 IF BED IS AVAILABLE. CM WILL CONTINUE TO FOLLOW TO ASSIST NEEDED.
[2021-02-16 09:05] LABS: FOLIC ACID 6.4 ng/mL (8.6-58.9)
[2021-02-16 15:00] VITALS: BP 122/45
--- NOTE | 2021-02-16 18:30 | NUR ---
PT ASSESSED AT START OF SHIFT. IN GOOD SPIRITS. PROGRESSING WELL W/ THERAPY. AMBULATED USING WALKER AND DID WELL. SAT UP MOST OF DAY IN THE CHAIR. RT HIP HEMOVAC DC'D PER DR. ALLEN. PAIN WELL CONTROLLED. PLANNING ON SKILLED FACILITY FOR THERAPY.
[2021-02-16 18:59] VITALS: BP 102/41
--- NOTE | 2021-02-16 20:25 | NUR ---
ASSESSED PT. SHE IS LAYING IN BED WATCHING TV. SHE IS CALM BUT CONFUSED. THINKS SHE IS IN [place]. [place] ASKED ABOUT PAIN, SHE STATES " JUST THE HICCUPS RIGHT NOW". PT ALSO TALKING ABOUT SNOW. SHE SEEMS ALITTLE DROWSY.SMILING. FOLLOWING INSTRUCTIONS LIKE SQUEEZING MY HANDS AND WIGGLING TOES. SOME EDEMA TO BLE.SCDS AND TEDS IN PLACE. GOOD CSM TO RLE.NO EXTRA BLEEDING NOTED ON SITE WHERE HEMOVAC WAS REMOVED.MARIA EUGENIA DRSG TO R HIP IS C/D/I.CONTINUES ON IV FLUIDS.BP ON THE SOFTER SIDE. ON ROOM AIR, NO DISTRESS, PALE LOOKING. NO FURTHER CONCERNS AT THIS TIME. WILL CONTINUE WITH POC.
[2021-02-17 03:40] VITALS: BP 124/44
[2021-02-17 06:04] LABS: ABSOLUTE NEUTROPHILS 5.5 thou/uL (1.4-8.2); RBC 2.54 mil/uL (4.20-5.00)
[2021-02-17 06:08] LABS: BASOPHILS 0.5 % (0.0-2.0); EOSINOPHILS 0.3 % (0.0-3.0); HEMATOCRIT 21.2 % (37.0-47.0); HEMOGLOBIN 7.2 gm/dL (12.0-15.0); LYMPHOCYTES 16.3 % (24.0-44.0); MCH 28.4 pg (26.0-34.0); MCV 83.8 fL (80.0-100.0); PLATELET COUNT 133 thou/uL (150-400); POLYS 73.9 % (36.0-66.0); RDW 14.7 % (10.5-14.5); WBC 7.5 thou/uL (4.0-11.0)
[2021-02-17 06:19] LABS: CALCIUM 8.2 mg/dL (8.5-10.1); CREATININE 0.9 mg/dL (0.6-1.0); MAGNESIUM 1.2 mg/dL (1.8-2.4)
[2021-02-17 08:17] VITALS: BP 116/42
--- NOTE | 2021-02-17 12:20 | NUR ---
ASSUMED PT CARE THIS AM. PT IS ALERT & ORIENTED X3 TO PERSON, PLACE AND SITUATION. PT IS UP WT ASSIST X1 AND HAS BATHROOM PRIVILEDGE. PHYSICAL THERAPY WALK WITH PT IN THE HALLWAY TODAY. NO C/O OF PAIN, NAUSEA AND VOMITING THIS AM. PT TOLERATED MED AND DIET WELL THIS AM. PT IS ON ROOM AIR. PT HAS [facility] KNEE HIGH. PT SITTING ON CHAIR. WILL CONTINUE TO MONITOR PT. FOLLOW POC.
--- NOTE | 2021-02-17 14:29 | NUR ---
ON-GOING ASSESSMENT: CM REVIEWED CHART AND SPOKE WITH BENITEZ IN ADMISSIONS AT [facility] WHO REPORTS SHE HAS ACCEPTED PATIENT AND STARTED AUTH YESTERDAY. CM FAXED UPDATED CLINICAL TO FACILITY AND AWAITING AUTH AT THIS TIME. TENTATIVE PLAN FOR DISCHARGE TOMORROW TO [facility] PENDING INSURANCE AUTH.
[2021-02-17 16:28] VITALS: BP 129/49
[2021-02-17 19:40] VITALS: BP 117/57
--- NOTE | 2021-02-18 03:46 | NUR ---
ASSESSMENT COMPLETED. R HIP MARIA EUGENIA DRSG IN PLACE WITH SOME OLD DRAINAGE. UP WITH WALKER TO THE BATHROOM,. ROOM AIR. SCDS AND TEDS IN PLACE.DENIES PAIN UPON REST. WILL CONTINUE WITH POC TILL EOS.
[2021-02-18 05:41] LABS: HEMATOCRIT 20.6 % (37.0-47.0); HEMOGLOBIN 7.1 gm/dL (12.0-15.0); MCH 28.8 pg (26.0-34.0); MCHC 34.4 g/dL (28.0-37.0); MCV 83.6 fL (80.0-100.0); RBC 2.46 mil/uL (4.20-5.00); RDW 15.2 % (10.5-14.5); WBC 7.4 thou/uL (4.0-11.0)
[2021-02-18 07:18] VITALS: BP 111/51
--- NOTE | 2021-02-18 10:34 | NUR ---
ASSUMED PT CARE THIS AM. PT IS ALERT & ORIENTED X4. PT IS UP WITH ASSIST X1 AND USES WALKER. PT TOLERATED MED AND DIET THIS AM. PT HAS [employer]IL[employer]AL [employer] [facility], SCD, MARIA EUGENIA DRESSING. PT IS ON ROOM AIR. PT AMBULATE IN THE WALLWAY WITH PHYSICAL THERAPY THIS AM. PT ON THE CHAIR WITH ALARM ON AND CALL LIGHT WITHIN REACH. WILL CONTINUE TO MONITOR PT. FOLLOW POC.
--- NOTE | 2021-02-18 13:14 | NUR ---
ON-GOING ASSESSMENT: CM REVIEWED CHART. YOANA RECEIVED A CALL FROM BENITEZ IN ADMISSIONS AT [facility] WHO REPORTS THEY RECEIVED INSURANCE AUTH AND CAN ACCEPT PATIENT TODAY. CHART COPY WAS ORDERED. CM NOTIFIED PATIENT WHO REPORTS SHE WILL TELL HER SISTER WHO IS HERE TO VISIT BUT CURRENTLY OUT OF THE ROOM. CM FAXED DISCHARGE PAPERWORK TO [facility] AND CONFIRMED THEY RECEIVED IT. TRANSPORTATION HAS BEEN ARRANGED FOR 1530. CM NOTIFIED PT WELL BEDSIDE RN. BEDSIDE RN HAS THE CONTACT NUMBER FOR REPORT. PT REPORTS NO FURTHER NEEDS FROM [facility] PRIOR TO DISCHARGE. CM ALSO NOTIFIED BENITEZ IN ADMISSIONS THAT PATIENT WAS VACCINATED WITH MODERNA VACCINE ON 11/25 AND 12/22.
--- NOTE | 2021-02-24 13:17 | D ---
[facility] [place] [address] DISCHARGE SUMMARY Name: MARTINEZ LEDEZMA Room #: 434-P [facility] IN ..#: [id number] Admission: 02/15/21 Attend Phys: Tom Rios MD Discharge: 02/18/21 Date of : 48 Report #: [id number] THIS REPORT FOR: cc: Mary Jernigan MD, Genelle J. MD Clymer,Tom Duron MD ~ DOC #: [id number] Tom Rios MD DATE OF SERVICE: 02/18/2021 FINAL DIAGNOSES: 1. End-stage degenerative arthritis, right hip. 2. Chronic anemia. OPERATION: Right total hip replacement. HISTORY: This frail 70-year-old female has rather severe degenerative arthritis involving the right hip. She has marked hip deformity with limited ability for weightbearing and ambulation and marked chronic discomfort. She has elected to go ahead with right total hip replacement. HOSPITAL COURSE: The patient was admitted and taken to the operating room on date 02/15, she underwent a right total hip replacement, which she tolerated nicely. Postoperatively, her course was largely unremarkable, although she was significantly chronically anemic with hemoglobin in the range of 7.1-7.2. Nevertheless, she had no significant symptoms without shortness of breath, chest pain or significant weakness. She was able to ambulate with physical therapy assistance. The dressing is dry. There is no evidence of any ongoing bleeding. She has resumed a regular diet. She is back on her routine medications. She seems ready for hospital discharge to an extended care facility for assistance in therapy until she can return to her own home. DISCHARGE MEDICATIONS: Include metoprolol 25 mg daily, atorvastatin 40 mg daily, Lasix 20 mg every other day, Nexium 40 mg daily, Xarelto 10 mg daily, hydrocodone 5-10 mg every 4-6 hours as needed for pain, ferrous sulfate 325 mg twice daily. She is instructed to call me periodically for routine followup. She will receive physical therapy assistance at her extended care facility and advance with therapy and occupational therapy as comfort and strength will allow. I will plan to see her back in my office in one week for routine followup and in two weeks for suture removal. Tom Rios MD [facility]/[address] [address] DISCHARGE SUMMARY Name: MARTINEZ LEDEZMA John Room #: 434-P [facility]#: [id number] Admission: 02/15/21 Attend Phys: Tom Rios MD Discharge: 02/18/21 Date of : 48 Report #: [id number] <ELECTRONICALLY SIGNED> By: Tom Rios MD 02/24/21 1317 1137 1228 Tom Rios MD /nt
== END 2021-02-18 16:00 | DRG 470 ==
LOC: 4S 07:24 → TBA 07:24 → PRE 09:35 → 4S 13:47 → PRE 14:37 → 4S 02-18 16:00
PROVIDERS: Nurse Practitioner; ADMIT Orthopaedic Surgery; ATTEND Orthopaedic Surgery
PROC: 0SR902Z Replacement of Right Hip Joint with Metal on Polyethylene Synthetic Substitute, Open Approach (ICD-10-PCS; principal; 2021-02-15)
DX: M16.11 Unilateral primary osteoarthritis, right hip (principal); D62 Acute posthemorrhagic anemia; I10 Essential (primary) hypertension; G89.29 Other chronic pain; M54.9 Dorsalgia, unspecified; K21.9 Gastro-esophageal reflux disease without esophagitis; M24.451 Recurrent dislocation, right hip; Q65.89 Other specified congenital deformities of hip; Z96.651 Presence of right artificial knee joint; I95.9 Hypotension, unspecified; D69.6 Thrombocytopenia, unspecified; Z95.5 Presence of coronary angioplasty implant and graft; Z88.2 Allergy status to sulfonamides; Z88.6 Allergy status to analgesic agent; Z91.040 Latex allergy status; Z90.721 Acquired absence of ovaries, unilateral
CPT/HCPCS: 10102; 50010; 50101; 50382; 50414; 51412; 53000; 56521; 56525; 56530; 57095; 57103; 57116; 58138; 58347; 58776; 58777; 58778; 58779; 58780; 58781; 62110; 62900; 70005

== ENCOUNTER 2021-02-23 14:28 | Inpatient (IN) | payer OTHER ==
[~2021-02-23] VITALS: Ht 152.4 cm; Wt 69.4 kg
--- NOTE | ~2021-02-23 | EMS ---
[address] [address] EMS Patient Care Report Name: MARTINEZ LEDEZMA Room #: REG EUGENIA Pichardo#: [id number] Admission: 02/23/21 Attend Phys: Discharge: Date of : 48 Report #: [id number] THIS REPORT FOR: //name// Report Transmitted: 02/23/2021 15:32 EMS Care Summary [facility] MED-ACT Incident [id number] @ 02/23/2021 13:45 Incident Location [address] [place] [id number] Patient MARTINEZ LEDEZMA Female, 70 Years 1950 Patient Address [address] [place] [id number] Patient History Cardiac - Stent,Hip Replacement, Patient Allergies Codeine,Latex allergy,Sulfa, Patient Medications Metoprolol, Diflucan, Atorvastatin, Zofran, Chief Complaint low hemaglobin per halfway staff Disposition Transported No Lights/[place] Dispatch Reason Sick Person Transported To [facility] Narrative [id number] arrived at nursing facility to find pt. sitting up in a chair, A & O x 3. Staff states pt. had a hip replacement one week ago and that this morning her labs showed a hemoglobin of less than 7 and that she needs transfer to the ED [address] [address] EMS Patient Care Report Name: MARTINEZ LEDEZMA Room #: REG EUGENIA Pichardo#: [id number] Admission: 02/23/21 Attend Phys: Discharge: Date of : 48 Report #: [id number] for a blood transfusion. Pt. states her only complaint is slight dizziness and nausea. Pt. stands with her walker and sits on cot. Pt. moved to unit and transported without change to [facility]. Pt. moved to bed via sheet drag to bed and pt. care is transferred to medical staff services coordinator. Initial Vitals @14:17P: 69,SpO2: 98, @14:07SpO2: 100, @13:57P: 73,R: 12,BP: 144/78,Pain: 2/10,GCS: 15,Temp: 97F,SpO2: 99,Revised Trauma: 12, Assessments @13:58MENTAL:Person Oriented,Time Oriented,Place Oriented,Event Oriented,SKIN:HEENT:Head/Face: No Abnormalities,Neck/Airway: No Abnormalities,LUNG SOUNDS:ABDOMEN:PELVIS//GI:Tenderness,EXTREMITIES:Left Arm: No Abnormalities,Right Arm: No Abnormalities,Left Leg: No Abnormalities,Right Leg: No Abnormalities,PULSE:NEURO:No Abnormalities, Impression Dizziness Timeline 13:44,Call Received 13:44,Psap Call 13:45,Dispatched 13:46,En Route 13:51,On Scene 13:56,At Patient 13:57,BP: 144/78 M,PULSE: 73,RR: 12 R,SPO2: 99 Ox,ETCO2: ,BG: ,PAIN: 2,GCS: 15, 14:07,BP: / M,PULSE: ,RR: R,SPO2: 100 Ox,ETCO2: ,BG: ,PAIN: ,GCS: , 14:08,Depart Scene 14:17,BP: / M,PULSE: 69,RR: R,SPO2: 98 Ox,ETCO2: ,BG: ,PAIN: ,GCS: , 14:21,At Destination 14:56,Call Closed Disclaimer v1.1 Copyright 2020 [employer] This EMS Care Summary contains data elements from the applicable legal record (which may be displayed differently). It is designed to provide pertinent information for the following purposes: continuity of care, clinical quality, and state data reporting. The complete legal record is available to ED staff and administrators of the receiving hospital in [employer]'s Patient Tracker. All data is provided "as is."
[2021-02-23 14:30] VITALS: BP 141/42
[2021-02-23] MEDS ORDERED: OMEPRAZOLE 20 M20 M1 PO (15:06)
[2021-02-23] MEDS ORDERED: DIFLUCAN200 MG PO (15:06)
[2021-02-23] MEDS ORDERED: CARAFATE1 GM PO (15:07)
[2021-02-23] MEDS ORDERED: MAGNESIUM400 MG PO (15:07)
[2021-02-23] MEDS ORDERED: B-125000 MC1 SUBLING (15:07)
[2021-02-23] MEDS ORDERED: MIRALAX119 GM PO (15:08)
[2021-02-23] MEDS ORDERED: ZOFRAN4 MG PO (15:08)
[2021-02-23] MEDS ORDERED: TOPROL XL25 MG PO (15:09)
[2021-02-23] MEDS ORDERED: WOMEN'S DAILY1 EACH PO (15:09)
[2021-02-23 15:13] LABS: ABSOLUTE NEUTROPHILS 3.9 thou/uL (1.4-8.2); BASOPHILS 0.5 % (0.0-2.0); EOSINOPHILS 1.7 % (0.0-3.0); LYMPHOCYTES 18.8 % (24.0-44.0); MCH 28.6 pg (26.0-34.0); MCHC 34.4 g/dL (28.0-37.0); MCV 83.2 fL (80.0-100.0); PLATELET COUNT 276 thou/uL (150-400); RBC 2.36 mil/uL (4.20-5.00); RDW 14.9 % (10.5-14.5); WBC 5.7 thou/uL (4.0-11.0)
[2021-02-23 15:17] LABS: HEMATOCRIT 19.6 % (37.0-47.0); HEMOGLOBIN 6.7 gm/dL (12.0-15.0)
[2021-02-23 15:19] LABS: CALCIUM 8.8 mg/dL (8.5-10.1); POTASSIUM 3.9 mmol/L (3.5-5.1)
[2021-02-23 15:22] LABS: % SATURATION 10 % (20-39); IRON 24 ug/dL (50-170); TIBC 230 ug/dL (250-450)
[2021-02-23 15:27] LABS: ALBUMIN 2.4 g/dL (3.4-5.0); TOTAL BILIRUBIN 1.1 mg/dL (0.2-1.0); TOTAL PROTEIN 6.6 g/dL (6.4-8.2)
[2021-02-23 16:32] LABS: ABSOLUTE RETIC COUNT 0.0793 10^6/uL; OBSERVED RETIC COUNT 3.23 % (0.6-2.6)
[2021-02-23 16:56] VITALS: BP 141/42
[2021-02-23 18:15] VITALS: BP 144/47
--- NOTE | 2021-02-23 18:15 | NUR ---
PATIENT ADMITTED TO 2N ROOM 214 AT 1805 FROM THE ED. ATTACHED TO HOLLOW HANDLE BENCH WORKER. ASSESSMENT DONE. MARIA EUGENIA DRESSING TO RT HIP BUT IS NOT BLINKING.
--- NOTE | 2021-02-23 18:23 | NUR ---
Admitted to 2N room 214 at 1805. Patient is alert and oriente, assisted to bed. Pain pump to rt hip. Placed on registered nurse cardiac.
[2021-02-23 20:45] VITALS: BP 122/38
[2021-02-24] VITALS (7 sets, daily range): BP systolic 107–139; BP diastolic 35–65
[2021-02-24 04:49] LABS: ABSOLUTE NEUTROPHILS 3.2 thou/uL (1.4-8.2); HEMOGLOBIN 6.7 gm/dL (12.0-15.0); LYMPHOCYTES 28.9 % (24.0-44.0)
[2021-02-24 04:53] LABS: EOSINOPHILS 2.6 % (0.0-3.0); MCHC 34.7 g/dL (28.0-37.0); MCV 83.3 fL (80.0-100.0); MONOCYTES 10.9 % (1.0-8.0); PLATELET COUNT 291 thou/uL (150-400); POLYS 56.6 % (36.0-66.0); RBC 2.31 mil/uL (4.20-5.00); RDW 14.4 % (10.5-14.5); WBC 5.7 thou/uL (4.0-11.0)
[2021-02-24 04:59] LABS: HEMATOCRIT 19.3 % (37.0-47.0)
[2021-02-24 05:08] LABS: CALCIUM 8.7 mg/dL (8.5-10.1); CREATININE 0.9 mg/dL (0.6-1.0); MAGNESIUM 1.5 mg/dL (1.8-2.4)
--- NOTE | 2021-02-24 07:07 | NUR ---
DEFER OT EVAL DUE TO CRITICALLY LOW HCT AND LOW HGB LEVELS. WILL CHECK BACK IN PM.
--- NOTE | 2021-02-24 07:44 | NUR ---
PATIENT CARES WERE ASSUMED AT SHIFT CHANGE. SOME DOCUMENTATION WAS TO BE FINISHED BY FABRICATION MANAGER ABOUT HER ADMISSION. PATIENT WAS ASSESSED AND MEDS WERE GIVEN. PATIENT IS [address] P.[address] RIGHT HIP REPLACEMENT. PECO DRESSING WAS REMOVED AND A NEW DRRESSING WAS PUT ON IN ITS PLACE. INCISION IS WELL PROXAMATED AND THE JULIEN ARE INTACK. ROUNDS WERE MADE. PATIENT AMBULATED TO THE TOILET X3 FOR APPROX 10 FT. EACH TIME THE BED IS IN A LOW AND LOCKED POSITION
--- NOTE | 2021-02-24 08:06 | NUR ---
PT ADMITTED WITH ANEMIA DX. PT NEEDING BLOOD TRANSFUSION. PT STATED SHE LIVES HOME ALONE IN A 4PLEX WITH 5 STAIRS TO ENTER AND ONE LEVEL INSIDE. PT IS INDEPENDENT W/ADLS. PT IS ACTIVE AND DRIVES A VEHICLE. PT USES 0 DMES. PT IS DOING REHAB AT [facility] FOR HIP REPLACEMENT SX SHE HAD ON MONDAY. PT ADMITTED TO REHAB ON LAST MONDAY AND PLANS TO RTRN THERE TO COMPLETE THERAPY AT D/C.
[2021-02-24 11:08] LABS: FOLIC ACID 11.9 ng/mL (8.6-58.9)
[2021-02-25 00:20] VITALS: BP 141/54
[2021-02-25 05:15] VITALS: BP 131/48
[2021-02-25 08:24] VITALS: BP 131/35
[2021-02-25 09:49] LABS: HEMATOCRIT 22.9 % (37.0-47.0); HEMOGLOBIN 7.7 gm/dL (12.0-15.0); MCH 28.6 pg (26.0-34.0); MCHC 33.7 g/dL (28.0-37.0); MCV 84.8 fL (80.0-100.0); RBC 2.7 mil/uL (4.20-5.00); RDW 15.1 % (10.5-14.5); WBC 5.7 thou/uL (4.0-11.0)
[2021-02-25 10:00] LABS: CALCIUM 8.7 mg/dL (8.5-10.1); CREATININE 0.8 mg/dL (0.6-1.0); POTASSIUM 3.6 mmol/L (3.5-5.1)
[2021-02-25 11:27] VITALS: BP 117/43
[2021-02-25 15:37] VITALS: BP 135/36
--- NOTE | 2021-02-25 16:22 | NUR ---
Pt is from the SNF at [facility] and can return there with new ins auth. [facility] and content writer faxed clinical to [facility] yesterday. [facility] liakirill Briceno talked with them this morning and rec'd ref# but auth was pending. Pt is dc ready and agreeable to return to SNF at [facility] today if auth rec'd. Chart copy ready to be sent with the pt. Cabinet Assembler made f/u call to [facility] and they indicate snf auth approved under ref#[id number] and can be used for admission today. Message left for Janak in admissions with request to schedule w/c van for this evening.
[2021-02-25] MEDS ORDERED: IRON325 PO (17:32)
--- NOTE | 2021-02-26 08:04 | NUR ---
Faxed dc orders fot vs[facility] at [phone]
== END 2021-02-25 19:10 | DRG 811 ==
LOC: ER 14:28 → EROBS 16:58 → 2N 16:58
PROVIDERS: Nurse Practitioner; Physician Assistant; ADMIT Internal Medicine; ATTEND Internal Medicine
PROC: 30233N1 Transfusion of Nonautologous Red Blood Cells into Peripheral Vein, Percutaneous Approach (ICD-10-PCS; principal; 2021-02-24)
DX: D50.9 Iron deficiency anemia, unspecified (principal); E43 Unspecified severe protein-calorie malnutrition; E87.1 Hypo-osmolality and hyponatremia; M19.90 Unspecified osteoarthritis, unspecified site; R53.81 Other malaise; D63.8 Anemia in other chronic diseases classified elsewhere; I10 Essential (primary) hypertension; K21.9 Gastro-esophageal reflux disease without esophagitis; Z96.651 Presence of right artificial knee joint; I25.10 Atherosclerotic heart disease of native coronary artery without angina pectoris; E53.8 Deficiency of other specified B group vitamins; K59.00 Constipation, unspecified; G89.4 Chronic pain syndrome; Z60.2 Problems related to living alone; M54.5 Low back pain; E83.42 Hypomagnesemia; T47.4X5A Adverse effect of other laxatives, initial encounter; Y92.89 Other specified places as the place of occurrence of the external cause; Z95.5 Presence of coronary angioplasty implant and graft; Z90.721 Acquired absence of ovaries, unilateral; Z88.2 Allergy status to sulfonamides; Z88.6 Allergy status to analgesic agent; Z91.040 Latex allergy status
CPT/HCPCS: 10081